=== PATIENT | female | born 1940 | race Caucasian/White ===

== ENCOUNTER 2017-10-31 14:26 | Inpatient (IN) | payer MEDICARE, MEDICAID ==
[~2017-10-31] VITALS: Ht 152.4 cm; Wt 70.3 kg
[~2017-10-31 14:26] MED LIST: ALLO300T8 PO; ASPI-611 PO; ATOR-2 PO; BISO10TA PO; CROM10DR2 OP; FURO40TA4 PO; GEMF600T3 PO; GLIM1TAB46 PO; HYDR25TA4 PO; ISOS120T9 PO; LEVO100T PO; METO10TA3 PO; NITR0.4T SL; NYST1000 PO; OMEG-107 PO; OXYC10TA47 PO; PANT40TA4 PO; PRAM0.258 PO; SPIR25TA5 PO; SUCR1TAB34 PO; TIOT4MIS2 INH
[2017-10-31] MEDS ORDERED: aspirin 81mg tab.chew PO ONE (14:35)
[2017-10-31 15:08] LABS: BASOPHILS % (AUTO) 0.2 % (0-1); EOSINOPHILS # (AUTO) 0.1 X10'3 (0-0.9); HEMATOCRIT 30.9 % (35.0-45.0); HEMOGLOBIN 10.3 g/dl (12.0-16.0); LYMPHOCYTES # (AUTO) 0.6 X10'3 (1.1-4.8); LYMPHOCYTES % (AUTO) 5.6 % (21-51); MEAN CORPUSCULAR HEMOGLOBIN 32.1 PG (27.0-31.0); MEAN CORPUSCULAR HGB CONC 33.2 % (33.0-36.5); MEAN CORPUSCULAR VOLUME 96.7 FL (78-98); MEAN PLATELET VOLUME 9.4 FL (7.4-10.4); MONOCYTES # (AUTO) 0.7 X10'3 (0-0.9); MONOCYTES % (AUTO) 7.4 % (2-12); NEUTROPHILS # (AUTO) 8.6 X10'3 (1.8-7.7); NEUTROPHILS % (AUTO) 85.8 % (42-75); PLATELET COUNT 103 X10'3 (140-440); RED CELL DISTRIBUTION WIDTH 19.6 % (11.5-14.5); WHITE BLOOD COUNT 10.1 X10'3 (4.5-11.0)
[2017-10-31] MEDS ORDERED: ondansetron/PF 4mg/2ml inj IV ONE (15:20)
[2017-10-31] MEDS ORDERED: nitroGLYCERIN 1gm ointment UD TP ONE (15:20)
[2017-10-31 15:23] LABS: ALANINE AMINOTRANSFERASE 19 U/L (12-78); ALBUMIN 3.4 G/DL (3.4-5.0); ALBUMIN/GLOBULIN RATIO 0.9 (1.1-1.5); ALKALINE PHOSPHATASE 116 IU/L (46-116); ANION GAP 8 (8-16); ASPARTATE AMINO TRANSFERASE 22 U/L (10-37); BILIRUBIN,TOTAL 0.7 MG/DL (0.1-1.0); BLOOD UREA NITROGEN 33 MG/DL (7-18); BUN/CREATININE RATIO 18.8 (6.6-38.0); CALCIUM 9.2 MG/DL (8.5-10.1); CHLORIDE 94 MMOL/L (99-107); CREATININE 1.76 MG/DL (0.40-0.90); GLUCOSE 130 MG/DL (70-104); POTASSIUM 3.5 MMOL/L (3.5-5.1); SODIUM 134 MMOL/L (135-145); TOTAL CARBON DIOXIDE 32.2 MMOL/L (24-32); eGFR 28 ML/MIN
[2017-10-31 15:32] LABS: MAGNESIUM 1.8 MG/DL (1.5-2.4)
[2017-10-31] MEDS ORDERED: ipratropium/albuterol 3ml nebule NEB ONE (16:00)
[2017-10-31] MEDS ORDERED: mag hydrox/Alum hydrox/simeth 30ml oral suspension PO PRN (16:15)
[2017-10-31] MEDS ORDERED: ceFAZolin 1GM/D5W- ADD-VANTAGE 50 ML IV ONE (16:15)
[2017-10-31] MEDS ORDERED: magnesium 1gm/100ml D5W IVPB 100 ML IV PRN (16:15)
[2017-10-31] MEDS ORDERED: magnesium 4gm in 100ml NS 100 ML IV PRN (16:15)
[2017-10-31] MEDS ORDERED: ondansetron/PF 4mg/2ml inj IV PRN (16:15)
[2017-10-31] MEDS ORDERED: potassium Cl 20 mEq SR tablet PO PRN (16:15)
[2017-10-31] MEDS ORDERED: magnesium hydroxide 30ml (MOM) UD suspension PO PRN (16:15)
[2017-10-31] MEDS ORDERED: potassium Cl 40MEQ/NS 500ml 500 ML IV PRN ×2 (16:15)
[2017-10-31] MEDS ORDERED: acetaminophen 325mg tablet PO PRN (16:15)
[2017-10-31] MEDS ORDERED: magnesium Cl slow-release 64mg tablet PO PRN (16:15)
[2017-10-31] MEDS ORDERED: nitroGLYCERIN 0.4mg SUBLingual tab SL PRN (16:25)
[2017-10-31] MEDS ORDERED: dextrose ORAL solution 15 GM/59 ML bottle PO PRN ×2 (16:25)
[2017-10-31] MEDS ORDERED: MESSAGE TO PHARMACY PO ONE (16:25)
[2017-10-31] MEDS ORDERED: regadenoson 0.4mg/5ml syringe IV ONE (16:25)
[2017-10-31] MEDS ORDERED: dextrose 50%-water 50ml dispensing syringe IV PRN ×2 (16:25)
[2017-10-31] MEDS ORDERED: glucagon, human recombinant 1mg kit SUBCUT PRN (16:25)
[2017-10-31] MEDS ORDERED: metoprolol tartrate 1mg/ml inj IV PRN (16:25)
[2017-10-31] MEDS ORDERED: CAFFEINE CITRATE 60 MG/3 ML injection vial IV PRN (16:25)
[2017-10-31] MEDS ORDERED: ALLO300T8 PO (16:32)
[2017-10-31 16:36] LABS: CLARITY,URINE CLEAR (Clear); COLOR,URINE YELLOW (Yellow); GLUCOSE, URINE NEGATIVE (Neg); KETONES,URINE NEGATIVE (Neg); LEUKOCYTE ESTERASE ,URINE NEGATIVE (Neg); NITRITES, URINE NEGATIVE (Neg); OCCULT BLOOD,URINE NEGATIVE (Neg); PROTEIN,URINE NEGATIVE (Neg); UA COLLECTION TYPE CLN CATCH MIDSTREAM; UROBILINOGEN,URINE 0.2 E.U/dL (0.2-1.0)
[2017-10-31] MEDS ORDERED: METO10TA3 PO (17:15)
[2017-10-31] MEDS ORDERED: TIOT4MIS2 INH (17:15)
[2017-10-31] MEDS ORDERED: NYST1000 PO (17:15)
[2017-10-31] MEDS ORDERED: GEMF600T3 PO (17:15)
[2017-10-31] MEDS ORDERED: PRAM0.258 PO (17:15)
[2017-10-31] MEDS ORDERED: NITR0.4T SL (17:15)
[2017-10-31] MEDS ORDERED: ATOR-2 PO (17:15)
[2017-10-31] MEDS ORDERED: LEVO100T PO (17:15)
[2017-10-31] MEDS ORDERED: PANT40TA4 PO (17:15)
[2017-10-31] MEDS ORDERED: SPIR25TA5 PO (17:15)
[2017-10-31] MEDS ORDERED: OMEG-107 PO (17:15)
[2017-10-31] MEDS ORDERED: ISOS120T9 PO (17:15)
[2017-10-31] MEDS ORDERED: FURO80TA3 PO (17:19)
[2017-10-31] MEDS ORDERED: HYDR25TA4 PO (17:19)
[2017-10-31] MEDS ORDERED: ISOS60TA4 PO (17:35)
[2017-10-31] MEDS ORDERED: FLUT1BLS3 IH (17:35)
[2017-10-31] MEDS ORDERED: INSU100V9 SQ (17:35)
[2017-10-31] MEDS ORDERED: AMIO200T57 PO (17:35)
[2017-10-31] MEDS ORDERED: POTA10TA15 PO (17:35)
[2017-10-31] MEDS ORDERED: OXYC5CAP19 PO (17:35)
[2017-10-31] MEDS ORDERED: TRAM50TA2 PO (17:45)
[2017-10-31 17:55] VITALS: BP 138/56
[2017-10-31 19:00] VITALS: BP 148/68
[2017-10-31 19:24] LABS: HEMOGLOBIN A1C 5.8 % (4.5-6.2)
[2017-10-31] MEDS: methylPREDNISolone sod succ/PF 40mg inj. IV SCH (19:58)
[2017-10-31] MEDS ORDERED: enoxaparin 60mg/0.6ml syringe SUBCUT SCH (20:00)
[2017-10-31] MEDS ORDERED: heparin, porcine 5000 units/ml vial SQ SCH (20:00)
[2017-10-31] MEDS: insulin glargine (Lantus) pen - multi-dose SQ SCH (22:01)
[2017-10-31 23:00] VITALS: BP 143/55
[2017-11-01] MEDS: methylPREDNISolone sod succ/PF 40mg inj. IV SCH ×4 (01:02→19:42)
[2017-11-01 03:00] VITALS: BP 131/56
[2017-11-01 06:00] VITALS: BP 136/57
[2017-11-01 06:10] LABS: BASOPHILS % (AUTO) 0 % (0-1); EOSINOPHILS # (AUTO) 0.1 X10'3 (0-0.9); EOSINOPHILS % (AUTO) 1.3 % (0-6); HEMATOCRIT 30.2 % (35.0-45.0); HEMOGLOBIN 9.9 g/dl (12.0-16.0); LYMPHOCYTES # (AUTO) 0.3 X10'3 (1.1-4.8); LYMPHOCYTES % (AUTO) 3.9 % (21-51); MEAN CORPUSCULAR HEMOGLOBIN 31.6 PG (27.0-31.0); MEAN CORPUSCULAR HGB CONC 32.6 % (33.0-36.5); MEAN PLATELET VOLUME 10.4 FL (7.4-10.4); MONOCYTES # (AUTO) 0.1 X10'3 (0-0.9); MONOCYTES % (AUTO) 0.8 % (2-12); NEUTROPHILS # (AUTO) 7.1 X10'3 (1.8-7.7); PLATELET COUNT 90 X10'3 (140-440); RED BLOOD COUNT 3.12 X10'6 (4.20-5.60); RED CELL DISTRIBUTION WIDTH 20.1 % (11.5-14.5); WHITE BLOOD COUNT 7.5 X10'3 (4.5-11.0)
[2017-11-01 06:28] LABS: ALANINE AMINOTRANSFERASE 9 U/L (12-78); ALBUMIN 3.3 G/DL (3.4-5.0); ALBUMIN/GLOBULIN RATIO 0.9 (1.1-1.5); ALKALINE PHOSPHATASE 120 IU/L (46-116); ANION GAP 8 (8-16); ASPARTATE AMINO TRANSFERASE 20 U/L (10-37); BILIRUBIN,TOTAL 0.5 MG/DL (0.1-1.0); BLOOD UREA NITROGEN 38 MG/DL (7-18); BUN/CREATININE RATIO 20.4 (6.6-38.0); CALCIUM 9.2 MG/DL (8.5-10.1); CHLORIDE 93 MMOL/L (99-107); CREATININE 1.86 MG/DL (0.40-0.90); GLUCOSE 169 MG/DL (70-104); POTASSIUM 3.2 MMOL/L (3.5-5.1); SODIUM 133 MMOL/L (135-145); TOTAL CARBON DIOXIDE 32.3 MMOL/L (24-32); TOTAL PROTEIN 7.1 G/DL (6.4-8.2); eGFR 26 ML/MIN
[2017-11-01 06:32] LABS: CHOL/HDL RATIO 2.9 (0.00-4.99); CHOLESTEROL 103 MG/DL (0-200); HDL CHOLESTEROL 35 MG/DL (35-60); LDL CHOLESTEROL 58 MG/DL (50-100); MAGNESIUM 1.9 MG/DL (1.5-2.4); TRIGLYCERIDES 28 MG/DL (20-135)
[2017-11-01] MEDS: K and/or MAG REPLACEMENT MC SCH (06:34)
[2017-11-01 07:00] LABS: ANISOCYTOSIS 2+; ELLIPTOCYTES FEW; PLATELET ESTIMATE DECREASED; POIKILOCYTOSIS FEW; POLYCHROMASIA FEW; SCHISTOCYTES FEW
[2017-11-01] MEDS: ceFAZolin 1GM/D5W- ADD-VANTAGE 50 ML IV SCH ×3 (07:53→16:16)
[2017-11-01] MEDS: potassium Cl 20 mEq SR tablet PO PRN ×3 (08:03→16:16)
[2017-11-01] MEDS: insulin Lispro (HumaLOG) vial - multi-dose SQ SCH ×3 (08:06→19:39)
[2017-11-01 11:00] VITALS: BP 135/59
[2017-11-01 15:00] VITALS: BP 166/74
[2017-11-01] MEDS: amiodarone 200mg tablet PO SCH (17:13)
[2017-11-01] MEDS: metoclopramide 10mg tablet PO SCH ×2 (17:14→21:45)
[2017-11-01] MEDS: levoTHYROXINE 100mcg tablet PO SCH (17:14)
[2017-11-01] MEDS: nystatin 500,000 unit/5ML UD oral suspension PO SCH ×2 (17:14→21:45)
[2017-11-01] MEDS: oxyCODONE IR 5mg (immed. release) tablet PO PRN (17:15)
[2017-11-01 18:00] VITALS: BP 168/64
[2017-11-01] MEDS: apixaban 5mg tablet PO SCH (19:43)
[2017-11-01] MEDS: gemfibrozil 600mg tablet PO SCH (19:43)
[2017-11-01] MEDS: lactobacillus rhamnosus 10,000 MMU CELLS/CAPSULE PO SCH (19:43)
[2017-11-01] MEDS: atorvastatin 20mg tablet PO SCH (21:45)
[2017-11-01] MEDS: insulin glargine (Lantus) pen - multi-dose SQ SCH (21:45)
[2017-11-01] MEDS: pramipexole 0.25mg tablet PO SCH (21:45)
[2017-11-01 22:00] VITALS: BP 142/64
[2017-11-02] MEDS: ceFAZolin 1GM/D5W- ADD-VANTAGE 50 ML IV SCH ×3 (00:55→16:04)
[2017-11-02] MEDS: methylPREDNISolone sod succ/PF 40mg inj. IV SCH ×4 (01:42→19:32)
[2017-11-02 02:00] VITALS: BP 108/45
[2017-11-02] MEDS: traMADol 50MG tablet PO PRN ×2 (03:02→19:47)
[2017-11-02 05:27] LABS: BASOPHILS % (AUTO) 0 % (0-1); EOSINOPHILS # (AUTO) 0.1 X10'3 (0-0.9); EOSINOPHILS % (AUTO) 1.1 % (0-6); HEMATOCRIT 29.3 % (35.0-45.0); HEMOGLOBIN 9.8 g/dl (12.0-16.0); LYMPHOCYTES # (AUTO) 0.2 X10'3 (1.1-4.8); LYMPHOCYTES % (AUTO) 2.8 % (21-51); MEAN CORPUSCULAR HEMOGLOBIN 31.6 PG (27.0-31.0); MEAN CORPUSCULAR HGB CONC 33.3 % (33.0-36.5); MEAN PLATELET VOLUME 10.1 FL (7.4-10.4); MONOCYTES # (AUTO) 0.1 X10'3 (0-0.9); MONOCYTES % (AUTO) 1.7 % (2-12); NEUTROPHILS # (AUTO) 7.8 X10'3 (1.8-7.7); NEUTROPHILS % (AUTO) 94.4 % (42-75); PLATELET COUNT 94 X10'3 (140-440); RED BLOOD COUNT 3.09 X10'6 (4.20-5.60); RED CELL DISTRIBUTION WIDTH 19.2 % (11.5-14.5); WHITE BLOOD COUNT 8.2 X10'3 (4.5-11.0)
[2017-11-02 05:38] LABS: ALANINE AMINOTRANSFERASE 19 U/L (12-78); ALBUMIN 3.1 G/DL (3.4-5.0); ALBUMIN/GLOBULIN RATIO 0.9 (1.1-1.5); ALKALINE PHOSPHATASE 92 IU/L (46-116); ANION GAP 9 (8-16); ASPARTATE AMINO TRANSFERASE 15 U/L (10-37); BILIRUBIN,TOTAL 0.4 MG/DL (0.1-1.0); BLOOD UREA NITROGEN 55 MG/DL (7-18); BUN/CREATININE RATIO 28.4 (6.6-38.0); CALCIUM 9.1 MG/DL (8.5-10.1); CHLORIDE 94 MMOL/L (99-107); CREATININE 1.94 MG/DL (0.40-0.90); GLUCOSE 198 MG/DL (70-104); MAGNESIUM 1.8 MG/DL (1.5-2.4); POTASSIUM 3.2 MMOL/L (3.5-5.1); SODIUM 134 MMOL/L (135-145); TOTAL CARBON DIOXIDE 30.6 MMOL/L (24-32); TOTAL PROTEIN 6.7 G/DL (6.4-8.2); eGFR 25 ML/MIN
[2017-11-02 06:00] VITALS: BP_SYST 119; BP_SYST 142; BP_DIAS 53; BP_DIAS 80
[2017-11-02 06:29] LABS: ANISOCYTOSIS 2+; PLATELET ESTIMATE DECREASED
[2017-11-02 06:30] LABS: MICROCYTOSIS 1+; POLYCHROMASIA 1+; SCHISTOCYTES 1+
[2017-11-02 06:31] LABS: TEAR DROP CELLS FEW
[2017-11-02] MEDS: metoclopramide 10mg tablet PO SCH ×4 (06:48→21:08)
[2017-11-02] MEDS: levoTHYROXINE 100mcg tablet PO SCH (06:49)
[2017-11-02] MEDS: K and/or MAG REPLACEMENT MC SCH (08:00)
[2017-11-02] MEDS: amiodarone 200mg tablet PO SCH (08:05)
[2017-11-02] MEDS: apixaban 5mg tablet PO SCH ×2 (08:07→19:32)
[2017-11-02] MEDS: lactobacillus rhamnosus 10,000 MMU CELLS/CAPSULE PO SCH ×2 (08:07→19:32)
[2017-11-02] MEDS: isosorbide mononitrate 30mg tab.SR.24H PO SCH (08:08)
[2017-11-02] MEDS: gemfibrozil 600mg tablet PO SCH ×2 (08:08→19:32)
[2017-11-02] MEDS: pramipexole 0.25mg tablet PO SCH ×3 (08:09→21:08)
[2017-11-02] MEDS: allopurinol 300 MG tablet PO SCH (08:10)
[2017-11-02] MEDS: nystatin 500,000 unit/5ML UD oral suspension PO SCH ×4 (08:10→21:07)
[2017-11-02] MEDS: potassium Cl 20 mEq SR tablet PO PRN ×3 (08:22→16:15)
[2017-11-02] MEDS: insulin Lispro (HumaLOG) vial - multi-dose SQ SCH ×4 (09:33→21:20)
[2017-11-02 11:00] VITALS: BP 128/59
[2017-11-02] MEDS ORDERED: CLIN150C2 PO (13:22)
[2017-11-02] MEDS ORDERED: FURO-150 PO (13:22)
[2017-11-02] MEDS ORDERED: APIX5TAB3 PO (13:22)
[2017-11-02] MEDS ORDERED: DEC4T PO (13:22)
[2017-11-02 15:00] VITALS: BP 141/53
[2017-11-02] MEDS: oxyCODONE IR 5mg (immed. release) tablet PO PRN (16:12)
[2017-11-02 18:00] VITALS: BP 148/64
[2017-11-02] MEDS: albuterol 2.5 MG/3 ML nebule NEB SCH (19:00)
[2017-11-02] MEDS: atorvastatin 20mg tablet PO SCH (21:08)
[2017-11-02] MEDS: insulin glargine (Lantus) pen - multi-dose SQ SCH (21:21)
[2017-11-02 22:00] VITALS: BP 139/58
[2017-11-03] MEDS: budesonide 0.5mg/2ml UD nebule IH SCH ×2 (00:58→06:59)
[2017-11-03] MEDS: ipratropium 0.5 MG/2.5ML nebule IH SCH ×4 (00:59→10:16)
[2017-11-03] MEDS: ceFAZolin 1GM/D5W- ADD-VANTAGE 50 ML IV SCH ×2 (01:23→08:03)
[2017-11-03] MEDS: methylPREDNISolone sod succ/PF 40mg inj. IV SCH ×3 (01:24→14:00)
[2017-11-03 02:00] VITALS: BP 145/56
[2017-11-03 06:00] VITALS: BP 144/66
[2017-11-03 06:25] LABS: BASOPHILS % (AUTO) 0 % (0-1); EOSINOPHILS # (AUTO) 0.1 X10'3 (0-0.9); EOSINOPHILS % (AUTO) 0.7 % (0-6); HEMOGLOBIN 9.6 g/dl (12.0-16.0); LYMPHOCYTES # (AUTO) 0.2 X10'3 (1.1-4.8); LYMPHOCYTES % (AUTO) 2.9 % (21-51); MEAN CORPUSCULAR HGB CONC 33.1 % (33.0-36.5); MEAN CORPUSCULAR VOLUME 96.7 FL (78-98); MEAN PLATELET VOLUME 9.7 FL (7.4-10.4); MONOCYTES # (AUTO) 0.1 X10'3 (0-0.9); MONOCYTES % (AUTO) 1.7 % (2-12); NEUTROPHILS # (AUTO) 7.2 X10'3 (1.8-7.7); NEUTROPHILS % (AUTO) 94.7 % (42-75); PLATELET COUNT 103 X10'3 (140-440); RED CELL DISTRIBUTION WIDTH 19.4 % (11.5-14.5); WHITE BLOOD COUNT 7.6 X10'3 (4.5-11.0)
[2017-11-03 06:38] LABS: ALANINE AMINOTRANSFERASE 14 U/L (12-78); ALBUMIN 2.8 G/DL (3.4-5.0); ALBUMIN/GLOBULIN RATIO 0.9 (1.1-1.5); ALKALINE PHOSPHATASE 89 IU/L (46-116); ANION GAP 8 (8-16); ASPARTATE AMINO TRANSFERASE 20 U/L (10-37); BILIRUBIN,TOTAL 0.3 MG/DL (0.1-1.0); BLOOD UREA NITROGEN 57 MG/DL (7-18); BUN/CREATININE RATIO 36.3 (6.6-38.0); CHLORIDE 100 MMOL/L (99-107); CREATININE 1.57 MG/DL (0.40-0.90); GLUCOSE 160 MG/DL (70-104); MAGNESIUM 1.9 MG/DL (1.5-2.4); POTASSIUM 3.5 MMOL/L (3.5-5.1); SODIUM 135 MMOL/L (135-145); TOTAL PROTEIN 5.9 G/DL (6.4-8.2); eGFR 32 ML/MIN
[2017-11-03] MEDS: albuterol 2.5 MG/3 ML nebule NEB SCH ×3 (06:57→14:57)
[2017-11-03] MEDS: metoclopramide 10mg tablet PO SCH ×2 (08:00→13:30)
[2017-11-03] MEDS: nystatin 500,000 unit/5ML UD oral suspension PO SCH ×2 (08:00→13:29)
[2017-11-03] MEDS: K and/or MAG REPLACEMENT MC SCH (08:00)
[2017-11-03] MEDS: apixaban 5mg tablet PO SCH (08:01)
[2017-11-03] MEDS: allopurinol 300 MG tablet PO SCH (08:01)
[2017-11-03] MEDS: gemfibrozil 600mg tablet PO SCH (08:01)
[2017-11-03] MEDS: lactobacillus rhamnosus 10,000 MMU CELLS/CAPSULE PO SCH (08:01)
[2017-11-03] MEDS: amiodarone 200mg tablet PO SCH (08:02)
[2017-11-03] MEDS: levoTHYROXINE 100mcg tablet PO SCH (08:02)
[2017-11-03] MEDS: pramipexole 0.25mg tablet PO SCH ×2 (08:03→13:35)
[2017-11-03] MEDS: insulin Lispro (HumaLOG) vial - multi-dose SQ SCH ×2 (09:06→13:28)
[2017-11-03] MEDS: isosorbide mononitrate 30mg tab.SR.24H PO SCH (09:13)
[2017-11-03 11:00] VITALS: BP 140/77
[2017-11-03] MEDS: traMADol 50MG tablet PO PRN (11:46)
[2017-11-03 15:00] VITALS: BP 134/55
== END 2017-11-03 15:55 | DRG 602 ==
LOC: ER 14:26 → ED HOLD 16:13 → PCU 3S 17:44
PROVIDERS: ADMIT Internal Medicine; ATTEND Internal Medicine
DX: L03.115 Cellulitis of right lower limb (principal); N17.0 Acute kidney failure with tubular necrosis; J44.1 Chronic obstructive pulmonary disease with (acute) exacerbation; I50.32 Chronic diastolic (congestive) heart failure; I13.0 Hypertensive heart and chronic kidney disease with heart failure and stage 1 through stage 4 chronic kidney disease, or unspecified chronic kidney disease; E87.1 Hypo-osmolality and hyponatremia; N18.4 Chronic kidney disease, stage 4 (severe); K21.9 Gastro-esophageal reflux disease without esophagitis; I25.10 Atherosclerotic heart disease of native coronary artery without angina pectoris; G20 Parkinson's disease; E78.00 Pure hypercholesterolemia, unspecified; G89.29 Other chronic pain; E11.22 Type 2 diabetes mellitus with diabetic chronic kidney disease; E03.9 Hypothyroidism, unspecified; E86.0 Dehydration; I48.91 Unspecified atrial fibrillation; M10.9 Gout, unspecified; Z90.49 Acquired absence of other specified parts of digestive tract; Z90.710 Acquired absence of both cervix and uterus; Z95.5 Presence of coronary angioplasty implant and graft; Z95.1 Presence of aortocoronary bypass graft; Z99.3 Dependence on wheelchair; Z99.81 Dependence on supplemental oxygen; Z88.6 Allergy status to analgesic agent; Z88.1 Allergy status to other antibiotic agents; Z88.5 Allergy status to narcotic agent; Z88.8 Allergy status to other drugs, medicaments and biological substances; Z79.82 Long term (current) use of aspirin; Z82.49 Family history of ischemic heart disease and other diseases of the circulatory system
CPT/HCPCS: 36415; 71045; 80053; 80061; 81003; 82948; 83036; 83735; 83880; 84443; 84484; 85025; 87070; 93005; 93306; 94640; 94760; 96374; 99285; J0690; J1650; J1815; J2405; J2920; J7030; J7626; J8597

== ENCOUNTER 2017-11-17 01:39 | Outpatient (CLI) | payer MEDICARE, MEDICAID ==
[~2017-11-17 01:39] MED LIST changes: +AMIO200T40 PO; +APIX5TAB3 PO; -ASPI-611 PO; -BISO10TA PO; +CLIN150C2 PO; -CROM10DR2 OP; +FLUT1BLS3 IH; +FURO-150 PO; -FURO40TA4 PO; +FURO80TA3 PO; -GEMF600T3 PO; +GEMF600T5 PO; -GLIM1TAB46 PO; +INSU100V9 SQ; -ISOS120T9 PO; +ISOS60TA4 PO; -OXYC10TA47 PO; +OXYC5CAP19 PO; +POTA10TA15 PO; -SUCR1TAB34 PO; +TRAM50TA2 PO
== END 2017-11-17 23:59 | disposition home or self-care (01) ==
LOC: DIABETIC 01:39
PROVIDERS: ATTEND Specialist
DX: E11.65 Type 2 diabetes mellitus with hyperglycemia (principal); J44.9 Chronic obstructive pulmonary disease, unspecified; I11.0 Hypertensive heart disease with heart failure; I50.9 Heart failure, unspecified; F17.200 Nicotine dependence, unspecified, uncomplicated; Z79.82 Long term (current) use of aspirin; Z79.899 Other long term (current) drug therapy; Z88.8 Allergy status to other drugs, medicaments and biological substances
CPT/HCPCS: G0108

== ENCOUNTER 2017-12-01 06:26 | Emergency (ER) | payer MEDICARE, MEDICAID ==
[~2017-12-01] VITALS: Ht 152.4 cm; Wt 64.0 kg
[2017-12-01 06:29] VITALS: BP 173/73
[2017-12-01] MEDS ORDERED: NITR0.4T48 SL (21:44)
== END 2017-12-01 09:09 | disposition home or self-care (01) ==
LOC: ER 06:26
DX: R04.0 Epistaxis (principal); R11.0 Nausea; I25.10 Atherosclerotic heart disease of native coronary artery without angina pectoris; E78.00 Pure hypercholesterolemia, unspecified; I10 Essential (primary) hypertension; J44.9 Chronic obstructive pulmonary disease, unspecified; K21.9 Gastro-esophageal reflux disease without esophagitis; E11.9 Type 2 diabetes mellitus without complications; G89.29 Other chronic pain; M81.0 Age-related osteoporosis without current pathological fracture; Z90.49 Acquired absence of other specified parts of digestive tract; Z90.710 Acquired absence of both cervix and uterus; Z87.891 Personal history of nicotine dependence; Z86.73 Personal history of transient ischemic attack (TIA), and cerebral infarction without residual deficits; Z88.8 Allergy status to other drugs, medicaments and biological substances; Z88.1 Allergy status to other antibiotic agents; Z79.4 Long term (current) use of insulin; Z79.899 Other long term (current) drug therapy
CPT/HCPCS: 99283

== ENCOUNTER 2017-12-01 19:29 | Emergency (ER) | payer MEDICARE, MEDICAID ==
[~2017-12-01] VITALS: Ht 152.4 cm; Wt 68.2 kg
[2017-12-01 20:45] LABS: INR 1.2 INR; PARTIAL THROMBOPLASTIN TIME 36 SECONDS (22-32); PROTHROMBIN TIME 12.2 SECONDS (9.0-12.0)
[2017-12-01 20:51] LABS: ALANINE AMINOTRANSFERASE 18 U/L (12-78); ALBUMIN 3.3 G/DL (3.4-5.0); ALBUMIN/GLOBULIN RATIO 1.1 (1.1-1.5); ALKALINE PHOSPHATASE 126 IU/L (46-116); ANION GAP 10 (8-16); ASPARTATE AMINO TRANSFERASE 29 U/L (10-37); BILIRUBIN,TOTAL 0.4 MG/DL (0.1-1.0); BLOOD UREA NITROGEN 15 MG/DL (7-18); BUN/CREATININE RATIO 11.5 (6.6-38.0); CALCIUM 7.5 MG/DL (8.5-10.1); CHLORIDE 103 MMOL/L (99-107); CREATININE 1.31 MG/DL (0.40-0.90); GLUCOSE 149 MG/DL (70-104); POTASSIUM 3.5 MMOL/L (3.5-5.1); SODIUM 137 MMOL/L (135-145); TOTAL CARBON DIOXIDE 24.1 MMOL/L (24-32); TOTAL PROTEIN 6.3 G/DL (6.4-8.2); eGFR 39 ML/MIN
[2017-12-01 21:22] LABS: BASOPHILS % (AUTO) 0 % (0-1); EOSINOPHILS % (AUTO) 0.6 % (0-6); HEMATOCRIT 26.6 % (35.0-45.0); HEMOGLOBIN 8.8 g/dl (12.0-16.0); LYMPHOCYTES # (AUTO) 0.6 X10'3 (1.1-4.8); MEAN CORPUSCULAR HEMOGLOBIN 30.6 PG (27.0-31.0); MEAN CORPUSCULAR HGB CONC 32.8 % (33.0-36.5); MEAN CORPUSCULAR VOLUME 93.3 FL (78-98); MEAN PLATELET VOLUME 8.2 FL (7.4-10.4); MONOCYTES # (AUTO) 0.5 X10'3 (0-0.9); MONOCYTES % (AUTO) 8.9 % (2-12); NEUTROPHILS # (AUTO) 4.5 X10'3 (1.8-7.7); NEUTROPHILS % (AUTO) 80.5 % (42-75); PLATELET COUNT 86 X10'3 (140-440); RED BLOOD COUNT 2.86 X10'6 (4.20-5.60); RED CELL DISTRIBUTION WIDTH 20.1 % (11.5-14.5); WHITE BLOOD COUNT 5.6 X10'3 (4.5-11.0)
[2017-12-01] MEDS ORDERED: NITR0.4T48 SL (21:44)
[2017-12-02 01:24] VITALS: BP 166/67
== END 2017-12-02 02:53 | disposition home or self-care (01) ==
LOC: ER 19:29
DX: R07.9 Chest pain, unspecified (principal); R06.02 Shortness of breath; R04.0 Epistaxis; R60.0 Localized edema; L53.9 Erythematous condition, unspecified; I48.91 Unspecified atrial fibrillation; I25.10 Atherosclerotic heart disease of native coronary artery without angina pectoris; E78.00 Pure hypercholesterolemia, unspecified; I10 Essential (primary) hypertension; J44.9 Chronic obstructive pulmonary disease, unspecified; K21.9 Gastro-esophageal reflux disease without esophagitis; E11.9 Type 2 diabetes mellitus without complications; G89.29 Other chronic pain; M81.0 Age-related osteoporosis without current pathological fracture; Z90.49 Acquired absence of other specified parts of digestive tract; Z88.8 Allergy status to other drugs, medicaments and biological substances; Z88.1 Allergy status to other antibiotic agents; Z88.6 Allergy status to analgesic agent; Z79.899 Other long term (current) drug therapy; Z86.73 Personal history of transient ischemic attack (TIA), and cerebral infarction without residual deficits; Z90.710 Acquired absence of both cervix and uterus; Z98.890 Other specified postprocedural states
CPT/HCPCS: 36415; 71045; 80053; 84484; 85025; 85610; 85730; 93005; 99285

== ENCOUNTER 2018-02-22 02:23 | Outpatient (CLI) | payer MEDICARE, MEDICAID ==
[~2018-02-22 02:23] MED LIST changes: -CLIN150C2 PO; +NITR0.4T48 SL
== END 2018-02-22 23:59 | disposition home or self-care (01) ==
LOC: DIABETIC 02:23
PROVIDERS: ATTEND Specialist
DX: E11.65 Type 2 diabetes mellitus with hyperglycemia (principal); I11.0 Hypertensive heart disease with heart failure; I50.9 Heart failure, unspecified; J44.9 Chronic obstructive pulmonary disease, unspecified; Z79.82 Long term (current) use of aspirin; Z79.4 Long term (current) use of insulin; Z90.710 Acquired absence of both cervix and uterus; Z87.891 Personal history of nicotine dependence
CPT/HCPCS: G0108

== ENCOUNTER 2018-03-05 03:06 | Inpatient (IN) | payer MEDICARE, MEDICAID ==
[~2018-03-05] VITALS: Ht 152.4 cm; Wt 60.4 kg
[2018-03-05] MEDS ORDERED: ondansetron/PF 4mg/2ml inj IV ONE ×2 (05:25→09:35)
[2018-03-05] MEDS ORDERED: HYDROmorphone 1 mg/ml syringe IV ONE ×2 (05:25→10:45)
[2018-03-05 05:58] LABS: BASOPHILS % (AUTO) 0 % (0-1); EOSINOPHILS # (AUTO) 0.1 X10'3 (0-0.9); EOSINOPHILS % (AUTO) 1.3 % (0-6); HEMATOCRIT 37.8 % (35.0-45.0); HEMOGLOBIN 12.1 g/dl (12.0-16.0); LYMPHOCYTES # (AUTO) 0.4 X10'3 (1.1-4.8); LYMPHOCYTES % (AUTO) 3.7 % (21-51); MEAN CORPUSCULAR HGB CONC 32.1 % (33.0-36.5); MEAN CORPUSCULAR VOLUME 87.2 FL (78-98); MONOCYTES # (AUTO) 0.7 X10'3 (0-0.9); MONOCYTES % (AUTO) 6.2 % (2-12); NEUTROPHILS # (AUTO) 10.1 X10'3 (1.8-7.7); NEUTROPHILS % (AUTO) 88.8 % (42-75); PLATELET COUNT 142 X10'3 (140-440); RED BLOOD COUNT 4.33 X10'6 (4.20-5.60); WHITE BLOOD COUNT 11.3 X10'3 (4.5-11.0)
[2018-03-05 06:11] LABS: ALANINE AMINOTRANSFERASE 21 U/L (12-78); ALBUMIN 4.4 G/DL (3.4-5.0); ALBUMIN/GLOBULIN RATIO 1.2 (1.1-1.5); ALKALINE PHOSPHATASE 121 IU/L (46-116); ANION GAP 12 (8-16); ASPARTATE AMINO TRANSFERASE 33 U/L (10-37); BILIRUBIN,TOTAL 0.8 MG/DL (0.1-1.0); BLOOD UREA NITROGEN 57 MG/DL (7-18); BUN/CREATININE RATIO 14.2 (6.6-38.0); CALCIUM 10.1 MG/DL (8.5-10.1); CHLORIDE 90 MMOL/L (99-107); CREATININE 4.02 MG/DL (0.40-0.90); ETHANOL < 0.010 GM/DL (0.0-0.010); GLUCOSE 141 MG/DL (70-104); LIPASE 92 U/L (73-393); MAGNESIUM 2.2 MG/DL (1.5-2.4); SODIUM 127 MMOL/L (135-145); TOTAL CARBON DIOXIDE 24.8 MMOL/L (24-32); TOTAL PROTEIN 8.1 G/DL (6.4-8.2); eGFR 11 ML/MIN
[2018-03-05] MEDS ORDERED: normal saline 1000ML IV soln IVB ONE (06:20)
[2018-03-05 06:28] LABS: INR 1.1 INR; PARTIAL THROMBOPLASTIN TIME 38 SECONDS (22-32); PROTHROMBIN TIME 10.7 SECONDS (9.0-12.0)
[2018-03-05] MEDS ORDERED: ringers solution, lacted 1,000 ML IV ONE (06:35)
[2018-03-05] MEDS ORDERED: insulin regular, human 10 units/0.1 ml syringe IV ONE (06:40)
[2018-03-05] MEDS ORDERED: dextrose 50%-water 50ml dispensing syringe IV ONE (06:40)
[2018-03-05] MEDS ORDERED: calcium gluconate inj. 1 GM in normal saline 100ml IV soln 100 ML IV ONE (06:40)
[2018-03-05] MEDS ORDERED: albuterol 2.5 mg/0.5ml nebule NEB ONE (06:40)
[2018-03-05 06:42] LABS: CLARITY,URINE CLEAR (Clear); COLOR,URINE YELLOW (Yellow); GLUCOSE, URINE NEGATIVE (Neg); KETONES,URINE NEGATIVE (Neg); LEUKOCYTE ESTERASE ,URINE NEGATIVE (Neg); NITRITES, URINE NEGATIVE (Neg); OCCULT BLOOD,URINE TRACE-INTACT (Neg); PH,URINE 7.5 (4.8-8.0); PROTEIN,URINE NEGATIVE (Neg); UROBILINOGEN,URINE 0.2 E.U/dL (0.2-1.0)
[2018-03-05 06:51] LABS: BACTERIA,URINE NONE SEEN /HPF (Neg); MUCUS STRANDS NONE SEEN /LPF (Neg); RBC,URINE 0-2 /HPF (0-2); SQUAMOUS EPITHELIAL CELL,UR NONE SEEN /LPF (FEW); UA COLLECTION TYPE FOLEY CATH; WBC,URINE NONE SEEN /HPF (0-4)
[2018-03-05] MEDS ORDERED: albuterol 2.5 MG/3 ML nebule NEB ONE (07:10)
[2018-03-05 08:01] LABS: ANISOCYTOSIS 3+; PLATELET ESTIMATE NORMAL; POIKILOCYTOSIS FEW; POLYCHROMASIA FEW; TEAR DROP CELLS FEW
[2018-03-05 08:03] LABS: POTASSIUM 4.8 MMOL/L (3.5-5.1)
[2018-03-05 08:27] LABS: CREATININE 3.84 MG/DL (0.40-0.90); eGFR 11 ML/MIN
[2018-03-05] MEDS ORDERED: ipratropium/albuterol 3ml nebule NEB PRN (08:30)
[2018-03-05] MEDS ORDERED: magnesium Cl slow-release 64mg tablet PO PRN (08:30)
[2018-03-05] MEDS ORDERED: magnesium hydroxide 30ml (MOM) UD suspension PO PRN (08:30)
[2018-03-05] MEDS ORDERED: potassium Cl 40MEQ/NS 500ml 500 ML IV PRN ×2 (08:30)
[2018-03-05] MEDS ORDERED: magnesium 1gm/100ml D5W IVPB 100 ML IV PRN (08:30)
[2018-03-05] MEDS ORDERED: potassium Cl 20 mEq SR tablet PO PRN ×2 (08:30)
[2018-03-05] MEDS ORDERED: mag hydrox/Alum hydrox/simeth 30ml oral suspension PO PRN (08:30)
[2018-03-05] MEDS ORDERED: acetaminophen 325mg tablet PO PRN (08:30)
[2018-03-05] MEDS ORDERED: magnesium 4gm in 100ml NS 100 ML IV PRN (08:30)
[2018-03-05] MEDS ORDERED: HYDROmorphone 1 mg/ml syringe IM ONE (09:35)
[2018-03-05] MEDS ORDERED: magnesium 2GM in 50ml NS 50 ML IV PRN (09:58)
[2018-03-05] MEDS ORDERED: insulin Lispro (HumaLOG) vial - multi-dose SQ SCH (10:10)
[2018-03-05] MEDS ORDERED: dextrose 50%-water 50ml dispensing syringe IV PRN ×2 (10:10)
[2018-03-05] MEDS: normal saline 1000ml 1,000 ML IV SCH ×2 (10:10→14:40)
[2018-03-05] MEDS ORDERED: glucagon, human recombinant 1mg kit SUBCUT PRN (10:10)
[2018-03-05] MEDS ORDERED: MESSAGE TO PHARMACY PO ONE (10:10)
[2018-03-05] MEDS ORDERED: dextrose ORAL solution 15 GM/59 ML bottle PO PRN ×2 (10:10)
[2018-03-05 11:40] LABS: HEMOGLOBIN A1C 6.2 % (4.5-6.2)
[2018-03-05] MEDS: albuterol 2.5 MG/3 ML nebule NEB SCH ×3 (12:26→20:20)
[2018-03-05] MEDS ORDERED: omega-3 acid ethyl esters 1GM capsule PO SCH (13:00)
[2018-03-05] MEDS: nystatin 500,000 unit/5ML UD oral suspension PO SCH ×3 (13:00→20:24)
[2018-03-05] MEDS ORDERED: levoTHYROXINE sod inj. 100mcg/5 ml vial IV SCH (13:30)
[2018-03-05] MEDS ORDERED: HYDROmorphone inj. 0.5 MG/0.5 ML DISP.SYRIN IV PRN (16:05)
[2018-03-05 16:43] LABS: ALBUMIN 3.9 G/DL (3.4-5.0); ANION GAP 10 (8-16); BLOOD UREA NITROGEN 53 MG/DL (7-18); BUN/CREATININE RATIO 14.3 (6.6-38.0); CHLORIDE 94 MMOL/L (99-107); GLUCOSE 109 MG/DL (70-104); SODIUM 131 MMOL/L (135-145); TOTAL CARBON DIOXIDE 27.4 MMOL/L (24-32); eGFR 12 ML/MIN
[2018-03-05 18:00] VITALS: BP 128/48
[2018-03-05] MEDS: ondansetron/PF 4mg/2ml inj IV PRN (18:56)
[2018-03-05] MEDS: HYDROmorphone 1 mg/ml syringe IV PRN (18:57)
[2018-03-05] MEDS ORDERED: gemfibrozil 600mg tablet PO SCH (20:00)
[2018-03-05] MEDS: budesonide 0.5mg/2ml UD nebule IH SCH (20:20)
[2018-03-05] MEDS ORDERED: atorvastatin 20mg tablet PO SCH (21:00)
[2018-03-05] MEDS: insulin glargine (Lantus) pen - multi-dose SQ SCH (21:00)
[2018-03-05 22:00] VITALS: BP 117/53
[2018-03-06] VITALS (8 sets, daily range): BP systolic 118–127; BP diastolic 28–55
[2018-03-06] MEDS: oxyCODONE IR 5mg (immed. release) tablet PO PRN ×3 (00:44→17:56)
[2018-03-06] MEDS: normal saline 1000ml 1,000 ML IV SCH (02:26)
[2018-03-06] MEDS: ondansetron/PF 4mg/2ml inj IV PRN (02:26)
[2018-03-06] MEDS: HYDROmorphone 1 mg/ml syringe IV PRN ×2 (02:27→06:06)
[2018-03-06] MEDS: K and/or MAG REPLACEMENT MC SCH (07:29)
[2018-03-06] MEDS: levoTHYROXINE 100mcg tablet PO SCH (07:40)
[2018-03-06] MEDS: pantoprazole 40mg Tablet.DR PO SCH (07:47)
[2018-03-06] MEDS: nystatin 500,000 unit/5ML UD oral suspension PO SCH ×4 (07:47→20:48)
[2018-03-06] MEDS ORDERED: isosorbide mononitrate 30mg tab.SR.24H PO SCH (08:00)
[2018-03-06] MEDS ORDERED: levoTHYROXINE 100mcg tablet PO SCH (08:00)
[2018-03-06] MEDS ORDERED: non-formulary drug (Fluticasone/Vilanterol (Breo Ellipta 200-25 Mcg INH) 1 PUFF) IH SCH (08:00)
[2018-03-06] MEDS ORDERED: amiodarone 200mg tablet PO SCH (08:00)
[2018-03-06 08:16] LABS: BASOPHILS % (AUTO) 0.1 % (0-1); EOSINOPHILS % (AUTO) 0.7 % (0-6); HEMATOCRIT 30.1 % (35.0-45.0); HEMOGLOBIN 9.6 g/dl (12.0-16.0); LYMPHOCYTES # (AUTO) 0.7 X10'3 (1.1-4.8); LYMPHOCYTES % (AUTO) 9.7 % (21-51); MEAN CORPUSCULAR HEMOGLOBIN 28.1 PG (27.0-31.0); MEAN CORPUSCULAR HGB CONC 31.8 % (33.0-36.5); MEAN CORPUSCULAR VOLUME 88.2 FL (78-98); MONOCYTES # (AUTO) 0.5 X10'3 (0-0.9); MONOCYTES % (AUTO) 7.2 % (2-12); NEUTROPHILS # (AUTO) 5.7 X10'3 (1.8-7.7); NEUTROPHILS % (AUTO) 82.3 % (42-75); PLATELET COUNT 103 X10'3 (140-440); RED BLOOD COUNT 3.42 X10'6 (4.20-5.60); RED CELL DISTRIBUTION WIDTH 29.5 % (11.5-14.5); WHITE BLOOD COUNT 6.9 X10'3 (4.5-11.0)
[2018-03-06 08:32] LABS: ALANINE AMINOTRANSFERASE 19 U/L (12-78); ALBUMIN 3.4 G/DL (3.4-5.0); ALBUMIN/GLOBULIN RATIO 1.2 (1.1-1.5); ALKALINE PHOSPHATASE 80 IU/L (46-116); ANION GAP 12 (8-16); ASPARTATE AMINO TRANSFERASE 26 U/L (10-37); BILIRUBIN,TOTAL 0.6 MG/DL (0.1-1.0); BLOOD UREA NITROGEN 55 MG/DL (7-18); BUN/CREATININE RATIO 17.5 (6.6-38.0); CALCIUM 8.3 MG/DL (8.5-10.1); CHLORIDE 96 MMOL/L (99-107); CHOL/HDL RATIO 3.7 (0.00-4.99); CHOLESTEROL 103 MG/DL (0-200); CREATININE 3.14 MG/DL (0.40-0.90); GLUCOSE 100 MG/DL (70-104); HDL CHOLESTEROL 28 MG/DL (35-60); LDL CHOLESTEROL 60 MG/DL (50-100); MAGNESIUM 2.1 MG/DL (1.5-2.4); POTASSIUM 4.3 MMOL/L (3.5-5.1); SODIUM 133 MMOL/L (135-145); TOTAL CARBON DIOXIDE 24.8 MMOL/L (24-32); TOTAL PROTEIN 6.3 G/DL (6.4-8.2); TRIGLYCERIDES 60 MG/DL (20-135); eGFR 14 ML/MIN
[2018-03-06 08:33] LABS: ANISOCYTOSIS 3+; PLATELET ESTIMATE DECREASED
[2018-03-06 08:34] LABS: POIKILOCYTOSIS FEW; TEAR DROP CELLS FEW
[2018-03-06] MEDS: albuterol 2.5 MG/3 ML nebule NEB SCH ×4 (08:43→19:32)
[2018-03-06] MEDS: budesonide 0.5mg/2ml UD nebule IH SCH ×2 (08:43→19:51)
[2018-03-06] MEDS: OXYcodone (OXYCONTIN) Ext Release 15 MG TAB.SR.12H PO SCH (20:47)
[2018-03-06] MEDS: pramipexole 0.25mg tablet PO SCH (20:52)
[2018-03-06] MEDS: insulin glargine (Lantus) pen - multi-dose SQ SCH (21:00)
[2018-03-07] MEDS: oxyCODONE IR 5mg (immed. release) tablet PO PRN (03:35)
[2018-03-07] MEDS: ondansetron/PF 4mg/2ml inj IV PRN ×3 (03:35→17:13)
[2018-03-07 06:00] VITALS: BP 146/56
[2018-03-07] MEDS: levoTHYROXINE 100mcg tablet PO SCH (07:18)
[2018-03-07] MEDS: nystatin 500,000 unit/5ML UD oral suspension PO SCH ×4 (07:19→20:57)
[2018-03-07] MEDS: atorvastatin 20mg tablet PO SCH (07:19)
[2018-03-07] MEDS: pramipexole 0.25mg tablet PO SCH ×3 (07:19→20:58)
[2018-03-07] MEDS: OXYcodone (OXYCONTIN) Ext Release 15 MG TAB.SR.12H PO SCH ×2 (07:19→20:58)
[2018-03-07] MEDS: pantoprazole 40mg Tablet.DR PO SCH (07:20)
[2018-03-07] MEDS ORDERED: metoclopramide 5 mg/ml inj IV ONE (07:40)
[2018-03-07 07:57] LABS: BASOPHILS % (AUTO) 0.2 % (0-1); EOSINOPHILS # (AUTO) 0.1 X10'3 (0-0.9); EOSINOPHILS % (AUTO) 0.7 % (0-6); HEMATOCRIT 33.9 % (35.0-45.0); HEMOGLOBIN 10.9 g/dl (12.0-16.0); LYMPHOCYTES # (AUTO) 0.4 X10'3 (1.1-4.8); LYMPHOCYTES % (AUTO) 4.4 % (21-51); MEAN CORPUSCULAR HEMOGLOBIN 28.4 PG (27.0-31.0); MEAN CORPUSCULAR HGB CONC 32.2 % (33.0-36.5); MEAN CORPUSCULAR VOLUME 88.3 FL (78-98); MEAN PLATELET VOLUME 9.4 FL (7.4-10.4); MONOCYTES # (AUTO) 0.6 X10'3 (0-0.9); MONOCYTES % (AUTO) 5.4 % (2-12); NEUTROPHILS # (AUTO) 9.2 X10'3 (1.8-7.7); NEUTROPHILS % (AUTO) 89.3 % (42-75); PLATELET COUNT 106 X10'3 (140-440); RED BLOOD COUNT 3.84 X10'6 (4.20-5.60); RED CELL DISTRIBUTION WIDTH 28.2 % (11.5-14.5); WHITE BLOOD COUNT 10.3 X10'3 (4.5-11.0)
[2018-03-07] MEDS: K and/or MAG REPLACEMENT MC SCH (08:00)
[2018-03-07 08:14] LABS: ALANINE AMINOTRANSFERASE 20 U/L (12-78); ALBUMIN 3.7 G/DL (3.4-5.0); ALBUMIN/GLOBULIN RATIO 1.1 (1.1-1.5); ALKALINE PHOSPHATASE 91 IU/L (46-116); ANION GAP 12 (8-16); ASPARTATE AMINO TRANSFERASE 26 U/L (10-37); BILIRUBIN,TOTAL 0.7 MG/DL (0.1-1.0); BLOOD UREA NITROGEN 52 MG/DL (7-18); BUN/CREATININE RATIO 19.3 (6.6-38.0); CALCIUM 8.9 MG/DL (8.5-10.1); CHLORIDE 93 MMOL/L (99-107); CREATININE 2.69 MG/DL (0.40-0.90); GLUCOSE 117 MG/DL (70-104); MAGNESIUM 2.1 MG/DL (1.5-2.4); POTASSIUM 4.1 MMOL/L (3.5-5.1); SODIUM 130 MMOL/L (135-145); TOTAL CARBON DIOXIDE 25.5 MMOL/L (24-32); TOTAL PROTEIN 7.1 G/DL (6.4-8.2); eGFR 17 ML/MIN
[2018-03-07] MEDS: albuterol 2.5 MG/3 ML nebule NEB SCH ×4 (08:16→19:16)
[2018-03-07] MEDS: budesonide 0.5mg/2ml UD nebule IH SCH ×2 (08:17→19:16)
[2018-03-07 09:22] VITALS: BP 144/46
[2018-03-07 09:47] LABS: ANISOCYTOSIS 3+; MICROCYTOSIS 1+; PLATELET ESTIMATE DECREASED
[2018-03-07 09:48] LABS: ELLIPTOCYTES FEW
[2018-03-07 12:09] VITALS: BP 131/76
[2018-03-07] MEDS ORDERED: sodium chloride 0.45% 1,000 ML IV SCH (12:35)
[2018-03-07] MEDS: aspirin 81mg tablet.DR PO SCH (13:02)
[2018-03-07 19:00] VITALS: BP 126/70
[2018-03-07] MEDS: heparin, porcine 5000 units/ml vial SQ SCH (20:57)
[2018-03-07] MEDS: insulin glargine (Lantus) pen - multi-dose SQ SCH (21:00)
[2018-03-07 22:00] VITALS: BP 119/56
[2018-03-07 23:13] LABS: OCCULT BLOOD STOOL NEGATIVE (Neg)
[2018-03-08] MEDS: oxyCODONE IR 5mg (immed. release) tablet PO PRN ×2 (04:23→12:47)
[2018-03-08 06:00] VITALS: BP 157/67
[2018-03-08] MEDS: ondansetron/PF 4mg/2ml inj IV PRN (06:03)
[2018-03-08 06:23] LABS: BASOPHILS % (AUTO) 0.2 % (0-1); EOSINOPHILS % (AUTO) 0.6 % (0-6); HEMATOCRIT 31.5 % (35.0-45.0); HEMOGLOBIN 10.1 g/dl (12.0-16.0); LYMPHOCYTES # (AUTO) 0.3 X10'3 (1.1-4.8); LYMPHOCYTES % (AUTO) 4.5 % (21-51); MEAN CORPUSCULAR HEMOGLOBIN 28.1 PG (27.0-31.0); MEAN CORPUSCULAR HGB CONC 32.1 % (33.0-36.5); MEAN CORPUSCULAR VOLUME 87.5 FL (78-98); MEAN PLATELET VOLUME 9.1 FL (7.4-10.4); MONOCYTES # (AUTO) 0.5 X10'3 (0-0.9); NEUTROPHILS # (AUTO) 6.9 X10'3 (1.8-7.7); NEUTROPHILS % (AUTO) 88.7 % (42-75); PLATELET COUNT 88 X10'3 (140-440); RED CELL DISTRIBUTION WIDTH 28.9 % (11.5-14.5); WHITE BLOOD COUNT 7.7 X10'3 (4.5-11.0)
[2018-03-08 06:39] LABS: ALANINE AMINOTRANSFERASE 16 U/L (12-78); ALBUMIN 3.3 G/DL (3.4-5.0); ALKALINE PHOSPHATASE 79 IU/L (46-116); ANION GAP 12 (8-16); ASPARTATE AMINO TRANSFERASE 25 U/L (10-37); BILIRUBIN,TOTAL 0.8 MG/DL (0.1-1.0); BLOOD UREA NITROGEN 46 MG/DL (7-18); BUN/CREATININE RATIO 20.8 (6.6-38.0); CALCIUM 8.5 MG/DL (8.5-10.1); CHLORIDE 92 MMOL/L (99-107); CREATININE 2.21 MG/DL (0.40-0.90); GLUCOSE 106 MG/DL (70-104); MAGNESIUM 2.2 MG/DL (1.5-2.4); SODIUM 127 MMOL/L (135-145); TOTAL CARBON DIOXIDE 23.5 MMOL/L (24-32); TOTAL PROTEIN 6.6 G/DL (6.4-8.2); eGFR 21 ML/MIN
[2018-03-08 06:41] LABS: ANISOCYTOSIS 3+; PLATELET ESTIMATE DECREASED
[2018-03-08] MEDS: K and/or MAG REPLACEMENT MC SCH (08:00)
[2018-03-08] MEDS: budesonide 0.5mg/2ml UD nebule IH SCH ×2 (08:14→21:10)
[2018-03-08] MEDS: albuterol 2.5 MG/3 ML nebule NEB SCH ×4 (08:14→21:10)
[2018-03-08] MEDS ORDERED: normal saline 1000ml 1,000 ML IV SCH (08:20)
[2018-03-08] MEDS: levoTHYROXINE 100mcg tablet PO SCH (09:34)
[2018-03-08] MEDS: aspirin 81mg tablet.DR PO SCH (09:35)
[2018-03-08] MEDS: pramipexole 0.25mg tablet PO SCH ×3 (09:35→20:02)
[2018-03-08] MEDS: atorvastatin 20mg tablet PO SCH (09:35)
[2018-03-08] MEDS: pantoprazole 40mg Tablet.DR PO SCH (09:36)
[2018-03-08] MEDS: OXYcodone (OXYCONTIN) Ext Release 15 MG TAB.SR.12H PO SCH ×2 (09:36→20:03)
[2018-03-08] MEDS: nystatin 500,000 unit/5ML UD oral suspension PO SCH ×4 (09:36→20:03)
[2018-03-08] MEDS: heparin, porcine 5000 units/ml vial SQ SCH ×2 (09:37→09:48)
[2018-03-08 10:00] VITALS: BP 141/54
[2018-03-08] MEDS: metoclopramide 10mg/10 ml UD oral solution PO SCH ×2 (12:29→17:00)
[2018-03-08 12:50] LABS: ALBUMIN 3.4 G/DL (3.4-5.0); ANION GAP 12 (8-16); BLOOD UREA NITROGEN 43 MG/DL (7-18); BUN/CREATININE RATIO 20.2 (6.6-38.0); CALCIUM 8.2 MG/DL (8.5-10.1); CHLORIDE 90 MMOL/L (99-107); CREATININE 2.13 MG/DL (0.40-0.90); GLUCOSE 130 MG/DL (70-104); POTASSIUM 3.7 MMOL/L (3.5-5.1); SODIUM 127 MMOL/L (135-145); TOTAL CARBON DIOXIDE 24.9 MMOL/L (24-32); eGFR 22 ML/MIN
[2018-03-08 13:58] LABS: C-REACTIVE PROTEIN 5.59 MG/DL (0.0-0.5)
[2018-03-08] MEDS: furosemide 20 MG/2 ML vial IV SCH ×2 (14:05→20:03)
[2018-03-08 18:00] VITALS: BP 138/54
[2018-03-08] MEDS: insulin glargine (Lantus) pen - multi-dose SQ SCH (21:00)
[2018-03-08 22:00] VITALS: BP 152/86
[2018-03-09] MEDS: oxyCODONE IR 5mg (immed. release) tablet PO PRN ×3 (04:22→16:14)
[2018-03-09 06:00] VITALS: BP 130/49
[2018-03-09 06:07] LABS: BASOPHILS % (AUTO) 0 % (0-1); EOSINOPHILS % (AUTO) 0 % (0-6); HEMATOCRIT 30.1 % (35.0-45.0); HEMOGLOBIN 9.8 g/dl (12.0-16.0); LYMPHOCYTES # (AUTO) 0.4 X10'3 (1.1-4.8); LYMPHOCYTES % (AUTO) 5.7 % (21-51); MEAN CORPUSCULAR HEMOGLOBIN 28.5 PG (27.0-31.0); MEAN CORPUSCULAR HGB CONC 32.5 % (33.0-36.5); MEAN CORPUSCULAR VOLUME 87.6 FL (78-98); MEAN PLATELET VOLUME 9.1 FL (7.4-10.4); MONOCYTES # (AUTO) 0.5 X10'3 (0-0.9); MONOCYTES % (AUTO) 6.1 % (2-12); NEUTROPHILS # (AUTO) 6.7 X10'3 (1.8-7.7); NEUTROPHILS % (AUTO) 88.2 % (42-75); PLATELET COUNT 91 X10'3 (140-440); RED BLOOD COUNT 3.43 X10'6 (4.20-5.60); RED CELL DISTRIBUTION WIDTH 28.1 % (11.5-14.5); WHITE BLOOD COUNT 7.6 X10'3 (4.5-11.0)
[2018-03-09 06:10] LABS: ALANINE AMINOTRANSFERASE 18 U/L (12-78); ALBUMIN 3.3 G/DL (3.4-5.0); ALKALINE PHOSPHATASE 77 IU/L (46-116); ANION GAP 12 (8-16); ASPARTATE AMINO TRANSFERASE 26 U/L (10-37); BILIRUBIN,TOTAL 0.7 MG/DL (0.1-1.0); BLOOD UREA NITROGEN 42 MG/DL (7-18); BUN/CREATININE RATIO 22.2 (6.6-38.0); CALCIUM 8.1 MG/DL (8.5-10.1); CHLORIDE 92 MMOL/L (99-107); CREATININE 1.89 MG/DL (0.40-0.90); GLUCOSE 97 MG/DL (70-104); MAGNESIUM 2.1 MG/DL (1.5-2.4); POTASSIUM 3.6 MMOL/L (3.5-5.1); SODIUM 128 MMOL/L (135-145); TOTAL CARBON DIOXIDE 24.5 MMOL/L (24-32); TOTAL PROTEIN 6.5 G/DL (6.4-8.2); eGFR 26 ML/MIN
[2018-03-09 06:59] LABS: ANISOCYTOSIS 3+; PLATELET ESTIMATE DECREASED
[2018-03-09 07:01] LABS: HYPOCHROMASIA 1+
[2018-03-09] MEDS: budesonide 0.5mg/2ml UD nebule IH SCH ×2 (07:27→20:48)
[2018-03-09] MEDS: albuterol 2.5 MG/3 ML nebule NEB SCH ×4 (07:28→20:48)
[2018-03-09] MEDS: K and/or MAG REPLACEMENT MC SCH (08:00)
[2018-03-09] MEDS: Potassium Cl inj 20 MEQ in normal saline 1000ml 990 ML IV SCH ×2 (08:56→19:37)
[2018-03-09] MEDS: levoTHYROXINE 100mcg tablet PO SCH (08:56)
[2018-03-09] MEDS: pantoprazole 40mg Tablet.DR PO SCH (08:57)
[2018-03-09] MEDS: aspirin 81mg tablet.DR PO SCH (08:57)
[2018-03-09] MEDS: nystatin 500,000 unit/5ML UD oral suspension PO SCH ×4 (08:57→20:16)
[2018-03-09] MEDS: metoclopramide 10mg/10 ml UD oral solution PO SCH ×3 (08:57→17:37)
[2018-03-09] MEDS: pramipexole 0.25mg tablet PO SCH ×3 (08:57→20:16)
[2018-03-09] MEDS: atorvastatin 20mg tablet PO SCH (08:57)
[2018-03-09] MEDS: OXYcodone (OXYCONTIN) Ext Release 15 MG TAB.SR.12H PO SCH ×2 (08:57→20:16)
[2018-03-09] MEDS: furosemide 20 MG/2 ML vial IV SCH ×2 (08:58→20:16)
[2018-03-09 10:00] VITALS: BP 138/53
[2018-03-09] MEDS ORDERED: bisacodyl 10mg suppository rectal RC STA (10:48)
[2018-03-09 18:00] VITALS: BP 145/58
[2018-03-09] MEDS: cephalexin 500mg capsule PO SCH (20:16)
[2018-03-09] MEDS: insulin glargine (Lantus) pen - multi-dose SQ SCH (20:29)
[2018-03-09 22:00] VITALS: BP 160/59
[2018-03-10] MEDS: oxyCODONE IR 5mg (immed. release) tablet PO PRN ×3 (00:16→13:53)
[2018-03-10] MEDS: Potassium Cl inj 20 MEQ in normal saline 1000ml 990 ML IV SCH (05:36)
[2018-03-10 06:00] VITALS: BP 145/55
[2018-03-10 07:07] LABS: ALANINE AMINOTRANSFERASE 22 U/L (12-78); ALKALINE PHOSPHATASE 77 IU/L (46-116); ANION GAP 7 (8-16); ASPARTATE AMINO TRANSFERASE 31 U/L (10-37); BILIRUBIN,TOTAL 0.6 MG/DL (0.1-1.0); BLOOD UREA NITROGEN 32 MG/DL (7-18); BUN/CREATININE RATIO 24.6 (6.6-38.0); CALCIUM 7.6 MG/DL (8.5-10.1); CHLORIDE 99 MMOL/L (99-107); GLUCOSE 100 MG/DL (70-104); MAGNESIUM 2.1 MG/DL (1.5-2.4); POTASSIUM 4.4 MMOL/L (3.5-5.1); SODIUM 130 MMOL/L (135-145); TOTAL CARBON DIOXIDE 23.9 MMOL/L (24-32); TOTAL PROTEIN 6.1 G/DL (6.4-8.2); eGFR 40 ML/MIN
[2018-03-10 07:09] LABS: BASOPHILS % (AUTO) 0.1 % (0-1); EOSINOPHILS # (AUTO) 0.1 X10'3 (0-0.9); HEMATOCRIT 28.1 % (35.0-45.0); HEMOGLOBIN 9.2 g/dl (12.0-16.0); LYMPHOCYTES # (AUTO) 0.4 X10'3 (1.1-4.8); LYMPHOCYTES % (AUTO) 6.6 % (21-51); MEAN CORPUSCULAR HEMOGLOBIN 28.7 PG (27.0-31.0); MEAN CORPUSCULAR HGB CONC 32.8 % (33.0-36.5); MEAN CORPUSCULAR VOLUME 87.5 FL (78-98); MEAN PLATELET VOLUME 8.9 FL (7.4-10.4); MONOCYTES # (AUTO) 0.4 X10'3 (0-0.9); MONOCYTES % (AUTO) 5.5 % (2-12); NEUTROPHILS # (AUTO) 5.8 X10'3 (1.8-7.7); NEUTROPHILS % (AUTO) 86.8 % (42-75); PLATELET COUNT 85 X10'3 (140-440); RED BLOOD COUNT 3.22 X10'6 (4.20-5.60); WHITE BLOOD COUNT 6.7 X10'3 (4.5-11.0)
[2018-03-10] MEDS: pramipexole 0.25mg tablet PO SCH ×2 (08:00→14:39)
[2018-03-10] MEDS: K and/or MAG REPLACEMENT MC SCH (08:00)
[2018-03-10] MEDS: metoclopramide 10mg/10 ml UD oral solution PO SCH ×2 (08:09→13:38)
[2018-03-10] MEDS: cephalexin 500mg capsule PO SCH (08:10)
[2018-03-10] MEDS: pantoprazole 40mg Tablet.DR PO SCH (08:10)
[2018-03-10] MEDS: aspirin 81mg tablet.DR PO SCH (08:10)
[2018-03-10] MEDS: atorvastatin 20mg tablet PO SCH (08:10)
[2018-03-10] MEDS: levoTHYROXINE 100mcg tablet PO SCH (08:10)
[2018-03-10] MEDS: OXYcodone (OXYCONTIN) Ext Release 15 MG TAB.SR.12H PO SCH (08:10)
[2018-03-10] MEDS: furosemide 20 MG/2 ML vial IV SCH (08:10)
[2018-03-10] MEDS: albuterol 2.5 MG/3 ML nebule NEB SCH ×2 (08:41→13:12)
[2018-03-10] MEDS: budesonide 0.5mg/2ml UD nebule IH SCH (08:43)
[2018-03-10 08:46] LABS: ANISOCYTOSIS 3+; PLATELET ESTIMATE DECREASED
[2018-03-10 08:48] LABS: ELLIPTOCYTES 1+; SCHISTOCYTES FEW; TEAR DROP CELLS 1+
[2018-03-10 08:50] LABS: POLYCHROMASIA FEW
[2018-03-10] MEDS: nystatin 500,000 unit/5ML UD oral suspension PO SCH ×2 (09:59→13:41)
[2018-03-10 10:00] VITALS: BP 135/57
== END 2018-03-10 15:15 | DRG 551 ==
LOC: ER 03:07 → ED HOLD 08:27 → EDBEDREQ 13:10 → ORTHO 4S 14:35
PROVIDERS: ADMIT Family Medicine; ATTEND Internal Medicine
DX: S32.010A Wedge compression fracture of first lumbar vertebra, initial encounter for closed fracture (principal); N17.0 Acute kidney failure with tubular necrosis; E87.1 Hypo-osmolality and hyponatremia; I13.0 Hypertensive heart and chronic kidney disease with heart failure and stage 1 through stage 4 chronic kidney disease, or unspecified chronic kidney disease; N18.4 Chronic kidney disease, stage 4 (severe); E87.5 Hyperkalemia; E11.22 Type 2 diabetes mellitus with diabetic chronic kidney disease; E78.00 Pure hypercholesterolemia, unspecified; E78.5 Hyperlipidemia, unspecified; E86.0 Dehydration; E89.0 Postprocedural hypothyroidism; G20 Parkinson's disease; G89.29 Other chronic pain; I25.10 Atherosclerotic heart disease of native coronary artery without angina pectoris; I48.2 Chronic atrial fibrillation; I50.9 Heart failure, unspecified; I80.8 Phlebitis and thrombophlebitis of other sites; M81.0 Age-related osteoporosis without current pathological fracture; J44.9 Chronic obstructive pulmonary disease, unspecified; K21.9 Gastro-esophageal reflux disease without esophagitis; K59.00 Constipation, unspecified; M19.90 Unspecified osteoarthritis, unspecified site; S92.404A Nondisplaced unspecified fracture of right great toe, initial encounter for closed fracture; M25.551 Pain in right hip; R79.89 Other specified abnormal findings of blood chemistry; D64.9 Anemia, unspecified; D69.6 Thrombocytopenia, unspecified; M25.40 Effusion, unspecified joint; X58.XXXA Exposure to other specified factors, initial encounter; W18.39XA Other fall on same level, initial encounter; M48.05 Spinal stenosis, thoracolumbar region; Z51.5 Encounter for palliative care; Z96.612 Presence of left artificial shoulder joint; Z96.641 Presence of right artificial hip joint; Z96.651 Presence of right artificial knee joint; Z90.710 Acquired absence of both cervix and uterus; Z90.49 Acquired absence of other specified parts of digestive tract; Z95.1 Presence of aortocoronary bypass graft; Z95.5 Presence of coronary angioplasty implant and graft; Z98.1 Arthrodesis status; Z99.3 Dependence on wheelchair; Z90.722 Acquired absence of ovaries, bilateral; Z88.6 Allergy status to analgesic agent; Z88.1 Allergy status to other antibiotic agents; Z88.8 Allergy status to other drugs, medicaments and biological substances; Z79.01 Long term (current) use of anticoagulants; Z79.890 Hormone replacement therapy; Z79.82 Long term (current) use of aspirin; Z79.4 Long term (current) use of insulin; Z87.891 Personal history of nicotine dependence; Z86.73 Personal history of transient ischemic attack (TIA), and cerebral infarction without residual deficits; Z80.7 Family history of other malignant neoplasms of lymphoid, hematopoietic and related tissues; Z82.49 Family history of ischemic heart disease and other diseases of the circulatory system; Y93.89 Activity, other specified; Y92.098 Other place in other non-institutional residence as the place of occurrence of the external cause; Y99.8 Other external cause status
CPT/HCPCS: 36415; 70450; 70544; 70551; 71045; 72131; 73552; 73560; 73590; 73620; 73630; 73700; 74176; 76775; 80048; 80053; 80061; 80320; 81001; 82272; 82565; 82948; 83036; 83605; 83690; 83735; 84132; 84443; 84484; 85025; 85610; 85651; 85730; 86140; 87040; 87070; 92616; 93005; 93306; 93880; 93975; 94640; 94760; 96361; 96374; 96375; 97110; 97116; 97162; 97530; 99291; G0378; J1170; J1644; J1815; J1940; J2405; J2765; J3480; J7030; J7120; J7611; J7626; J8597